=== PATIENT | male | born 1960 | race Caucasian/White ===

== ENCOUNTER 2020-03-08 10:27 | Emergency (ER) | payer BC, OTHER ==
--- NOTE | 2020-03-08 10:30 | ERPHSYRPT ---
- History of Present Illness Time Seen by Provider: 03/08/20 10:30 - Past Medical History Neurological History: No Pertinent History Cardiac History: No Pertinent History Respiratory History: No Pertinent History Endocrine Medical History: No Pertinent History Musculoskeletal History: Fractures Other Medical History: FX FINGER RIGHT HAND - ORIF >10 YEARS AGO. FX RIGHT HIP - ORIF 1989 - Referrals: EDWIN VILLAFUERTE MD [Primary Care Provider] -
--- NOTE | 2020-03-08 11:38 | XRAY ---
Indication: Pain and swelling following fall. Comparison: None 3 view left knee demonstrates minimal medial joint space narrowing/spurring, tiny patella spurring, nonspecific effusion, tiny medial condyle bone island, and small posterior lateral tibial plateau heterotopic ossification. No other bony, articular, or soft tissue abnormalities.
[2020-03-08 12:58] VITALS: BP 144/82; PULSE 80; O2SAT 96
== END 2020-03-08 12:58 | disposition home or self-care (01) ==
LOC: ED 10:27
DX: S83.92XA Sprain of unspecified site of left knee, initial encounter (principal); W01.0XXA Fall on same level from slipping, tripping and stumbling without subsequent striking against object, initial encounter; Y93.01 Activity, walking, marching and hiking; Y92.89 Other specified places as the place of occurrence of the external cause; Y99.0 Civilian activity done for income or pay
CPT/HCPCS: 73562; 99283

== ENCOUNTER 2022-02-04 16:42 | Emergency (ER) | payer OTHER ==
[2022-02-04] MEDS ORDERED: NORCO 5/325 MG PO ONE ×2 (17:03→19:53)
[2022-02-04] MEDS ORDERED: NORCO 5/325 MG ONE ×2 (18:14→19:56)
--- NOTE | 2022-02-04 19:32 | ERPHSYRPT ---
- History of Present Illness Time Seen by Provider: 02/04/22 16:49 Source: patient Exam Limitations: no limitations Patient Subjective Stated Complaint: Pt stated that his right ankle gave out from under him and twisted and now he has severe pain Triage Nursing Assessment: Pt brought to the ER by his son, lis pool, rates pain as 8/10, right ankle is swollen and tender and red in color, pulses normal, cap refill normal, denies any other injuries Physician History: 61 years old male presented in the ER with chief complaint of right ankle pain and swelling after his right ankle gave away while he stepped out of the garage and twisted it yesterday. Since then having gradual Jose Eduardo worsening sharp shooting pain and inability to have weightbearing. Pain is more on the lateral aspect of ankle with some swelling on the medial aspect as well. No injury anywhere else. Method of Injury: fell, twisted Occurred: yesterday Quality: sharpness Severity of Pain-Max: moderate Severity of Pain-Current: moderate Lower Extremities Pain: ankle: right Modifying Factors: Improves With: immobilization. Worsens With: movement Associated Symptoms: unable to bear weight Allergies/Adverse Reactions: No Known Drug Allergies Allergy (Verified 02/04/22 16:56) Hx Tetanus, Diphtheria Vaccination/Date Given: Yes Travel Risk - International Travel Have you traveled outside of the country in past 3 weeks: No - Coronavirus Screening Are you exhibiting any of the following symptoms?: No Close contact with a COVID-19 positive Pt in past 14-21 Days: No - Vaccine Status Have you recieved a Covid-19 vaccination: Yes Clinical Trial Leader: Unknown - Vaccination Dates Dates if Unknown: unknown - Review of Systems Constitutional: No Symptoms Eyes: No Symptoms Ears, Nose, & Throat: No Symptoms Respiratory: No Symptoms Cardiac: No Symptoms Musculoskeletal: Injury, Joint Pain, Joint Swelling Skin: No Symptoms Neurological: No Symptoms Psychological: No Symptoms Endocrine: No Symptoms Hematologic/Lymphatic: No Symptoms Immunological/Allergic: No Symptoms - Past Medical History Pertinent Past Medical History: Yes Neurological History: No Pertinent History Cardiac History: No Pertinent History Respiratory History: No Pertinent History Endocrine Medical History: No Pertinent History Musculoskeletal History: Fractures Other Medical History: FX FINGER RIGHT HAND - ORIF >10 YEARS AGO. FX RIGHT HIP - ORIF 1989 - Past Surgical History Past Surgical History: Yes Musculoskeletal: Orthopedic Surgery Other Surgical History: rotator cuff on right - Social History Smoking Status: Never smoker Exposure to second hand smoke: No Drug Use: none Patient Lives Alone: Yes - Nursing Vital Signs Nursing Vital Signs: Initial Vital Signs Temperature 97.7 F 02/04/22 16:49 Pulse Rate 81 02/04/22 16:49 Blood Pressure 132/75 02/04/22 16:49 O2 Sat by Pulse Oximetry 97 02/04/22 16:49 Pain Scale Pain Intensity 8 - Physical Exam General Appearance: no apparent distress, alert Eyes, Ears, Nose, Throat Exam: normal ENT inspection Neck Exam: normal inspection, non-tender, supple, full range of motion Cardiovascular/Respiratory Exam: normal breath sounds, regular rate/rhythm Back Exam: normal inspection, normal range of motion Ankle Exam: right ankle: bone tenderness (Lateral malleolus, anterior ankle and some on the medial malleolus as well), limited range of motion, pain, soft tissue tenderness, swelling, left ankle: non-tender, normal inspection, normal range of motion, no evidence of injury Foot Exam: right foot: pain, soft tissue tenderness Neuro/Tendon Exam: normal sensation Mental Status Exam: alert, oriented x 3 Skin Exam: normal color SpO2 Interpretation: normal SpO2: 96 O2 Delivery: Room Air Ordered Tests: Active Orders 24 hr Category Date Time Status ANKLE (3 VIEWS) Stat Exams 02/04/22 18:19 Taken LOWER LEG Stat Exams 02/04/22 18:19 Taken Medication Summary Discontinued Medications Generic Name Dose Route Start Last Admin Trade Name Ember PRN Reason Stop Dose Admin Hydrocodone Bitart/Acetaminophen 2 tab 02/04/22 17:03 02/04/22 18:14 Hydrocodone/Apap 5/325 Mg Tablet PO 02/04/22 17:04 2 tab STAT ONE Administration Hydrocodone Bitart/Acetaminophen Confirm 02/04/22 18:14 Hydrocodone/Apap 5/325 Mg Tablet Administered 02/04/22 18:15 Dose 2 tab .ROUTE .STK-MED ONE - Progress Progress: improved, pain not gone completely, re-examined Progress Note: 02/04/22 19:50 Has spiral fracture lower end of fibula without any dislocation. Given symptomatic treatment for pain and here, feeling better on reevaluation. We will continue with pain medication, nonweightbearing, crutches and outpatient podiatry follow-up. Counseled pt/family regarding: diagnosis, need for follow-up, rad results - Departure Departure Disposition: Home Clinical Impression: Ankle fracture, right Condition: Stable Critical Care Time: No Referrals: EDWIN VILLAFUERTE MD [Primary Care Provider] - Follow Up with PCP/3 days SARAH QUIJANO DPM [ACTIVE STAFF] - Follow up/PCP as directed (Tomorrow for reevaluation) Instructions: Ankle Fracture (DC) Additional Instructions: Keep it elevated, intermittent ice application. Nonweightbearing. Follow-up with diesel locomotive firer/fireman for reevaluation tomorrow. Return to ER for intractable pain, swelling, bluish discoloration of the toes or difficulty movements of toes etc. Prescriptions: Hydrocodone/Acetaminophen [Hydrocodone-Acetamin 5-325 mg] 1 tab PO Q6HPRN PRN 3 Days #12 tablet MDD 4 PRN Reason: Pain
[2022-02-04 20:04] VITALS: BP 148/79; PULSE 66; O2SAT 97
--- NOTE | 2022-02-05 08:39 | XRAY ---
Indication: Pain following fall. Comparison: None 2 view right lower leg demonstrates nondisplaced bi-malleolar fractures reported separately. Anterior leg demonstrates tiny soft tissue calcified granulomas. No other bony, articular, or soft tissue abnormalities.
--- NOTE | 2022-02-05 08:41 | XRAY ---
Indication: Pain following fall. Comparison: None 3 view left ankle demonstrates nondisplaced bimalleolar fractures with soft tissue swelling. Incidental small posterior/tiny plantar heel spurs. No other bony, articular, or soft tissue abnormalities. Comment: Preliminary interpretation made by [facility]. No critical discrepancy.
== END 2022-02-04 20:18 | disposition home or self-care (01) ==
LOC: ED 16:42
DX: S82.831A Other fracture of upper and lower end of right fibula, initial encounter for closed fracture (principal); X50.0XXA Overexertion from strenuous movement or load, initial encounter; Y92.015 Private garage of single-family (private) house as the place of occurrence of the external cause; M25.571 Pain in right ankle and joints of right foot; Z79.891 Long term (current) use of opiate analgesic
CPT/HCPCS: 29515; 73590; 73610; 99284; A9270-GY

== ENCOUNTER 2022-02-06 11:07 | Day surgery (SDC) | payer OTHER ==
[~2022-02-06 11:07] MED LIST: BUPIVACAINE 0.5% VIAL IJ ONE; Lactated Ringers 1,000 ML IV ONE; XYLOCAINE 1% HCL 20 ML MDV ONE
[2022-02-06] MEDS ORDERED: Versed 2 MG/2 ML Injection ONE (11:27)
[2022-02-06] MEDS ORDERED: SUBLIMAZE 100 MCG/2 ML ONE ×2 (11:28→13:20)
[2022-02-06] MEDS ORDERED: Naropin 0.5% 30 ML VIAL ONE (11:29)
[2022-02-06] MEDS ORDERED: Zofran 4 MG/2 ML VIAL ONE (11:29)
[2022-02-06] MEDS ORDERED: Decadron 4 MG INJ ONE (11:29)
[2022-02-06] MEDS ORDERED: DIPRIVAN 200 MG/20 ML IV ONE (11:29)
[2022-02-06] MEDS ORDERED: Xylocaine-Mpf 2% 5 Ml Vial ONE (11:29)
[2022-02-06] MEDS ORDERED: Marcaine 0.5%/Epinephrine 10 ML ONE (11:29)
[2022-02-06] MEDS ORDERED: Quelicin Fliptop 200 MG/10 ML ONE (11:33)
[2022-02-06] MEDS ORDERED: Zemuron 100 MG/10 ML ONE (11:33)
[2022-02-06] MEDS ORDERED: Reglan 10 MG/2 ML IV ONE (11:59)
[2022-02-06] MEDS ORDERED: Pepcid 20 MG VIAL IV ONE (11:59)
[2022-02-06] MEDS ORDERED: Lactated Ringers 1,000 ML IV SCH (12:00)
[2022-02-06] MEDS ORDERED: CEFAZOLIN 2 GM-D5W BAG** 2 GM/50 ML ML IV SCH (12:00)
[2022-02-06] MEDS ORDERED: Pre-Attached Lta Kit TP ONE (12:53)
[2022-02-06] MEDS ORDERED: DEXMEDETOMIDINE 80 MCG/20ML-NS IV ONE (12:53)
[2022-02-06] MEDS ORDERED: OFIRMEV 100 ML IV ONE (12:53)
[2022-02-06] MEDS ORDERED: Ephedrine Sulfate 50 MG/ML ONE (13:17)
[2022-02-06] MEDS ORDERED: ATROPINE SULFATE 1MG ONE (13:25)
--- NOTE | 2022-02-06 14:28 | XRAY ---
Indication: ORIF right ankle fracture. Intraoperative fluoroscopy provided for 2 minute 5 seconds. 3 digital spot images demonstrates fixation plate and screws fixating bimalleolar fracture in good apposition/alignment. Correlate with intraoperative findings/report.
[2022-02-06 16:13] VITALS: O2SAT 97
[2022-02-06 16:36] VITALS: BP 153/98; PULSE 70
--- NOTE | 2022-02-06 16:47 | XRAY ---
2 minutes 5 seconds of fluoroscopy was used in surgery for an ORIF of right ankle.
--- NOTE | 2022-02-07 12:00 | OP ---
SURGERY DATE/TIME: 02/06/2022 1250 PREOPERATIVE DIAGNOSIS: Bimalleolar fracture right ankle and syndesmotic disruption and right ankle pain. POSTOPERATIVE DIAGNOSIS: Bimalleolar fracture right ankle and syndesmotic disruption and right ankle pain. PROCEDURES: 1) Open reduction internal fixation of the right ankle bimalleolar fracture. 2) Syndesmotic reduction. SURGEON: Dino Krishna DPM. CENSUS TAKER: None. ANESTHESIA: General plus preoperative popliteal and saphenous block. HEMOSTASIS: Thigh tourniquet set to 300 mm of Mercury for 48 total tourniquet minutes. ESTIMATED BLOOD LOSS: Less than 5 cc. MATERIALS: Rakel anatomical six-hole plate with a combination of locking and nonlocking screws and a partially threaded 4.0 x 70 mm medial malleolar screw, 4.0 Monocryl, 2.0 Monocryl and 3-0 Nylon. INJECTABLES: See anesthesia report for details. INDICATION FOR SURGERY: Isidro is a very pleasant 61 year-old male who presented to my practice yesterday after fall. He presented to the emergency room on Saturday after having stepped out of the garage to his driveway and feeling a popping within his ankle assuming this was a slow rotational fracture. However the patient presented to the emergency room unable to bear weight to it and was diagnosed with a bimalleolar fracture of the right ankle. It appeared to be stable on presentation to the emergency department. However, the patient was placed in a posterior splint. The patient at that time continued to weight bear and further displaced the fracture to the bimalleolar medial and lateral ankle. At this time due to the nature of the fracture and the displacement of it and instability of it, the patient was informed that this is a surgical issue. The patient understands all risks, benefits and complications of surgical intervention at this time. Most complications were discussed with the patient that include but not limited to infection, hematoma, seroma, delayed skin healing, nonskin healing, possibility of nonbone healing as well as delayed bone healing. There is also a possibility of need for surgical intervention at a later date. The patient understands all of these and plenty of time was allowed for questions to be asked which were answered to the patient's apparent satisfaction. Plenty of time was allowed for these questions. It is with that we decided to proceed. DESCRIPTION OF PROCEDURE AND FINDINGS: At this time the patient was brought into the OR and placed on the OR table in the supine position. Prior to the procedure, the patient was provided a popliteal and saphenous block in order to alleviate the pain that he would be experiencing following the procedure and intraoperatively to allow for waterway traffic checker sedation. The patient had a well-padded thigh tourniquet applied to the right lower extremity and the right lower extremity was prepped and draped in the typical sterile fashion after general anesthesia was administered. At this time, attention was directed under fluoroscopic guidance to the lateral malleolus where incision was made being careful not to damage any neurovascular structures along the way to the posterior border of the fibula. At this time, the incisions were deepened and the fracture site was identified. At this time, copious amounts of sterile saline were utilized to flush the fracture site and a dental pick was utilized to remove any nonvitalized tissue. A lobster claw reduction clamp was utilized to close down the fracture this was checked under fluoroscopic guidance, this was deemed to be adequate inline and in rotation and at this time a six-hole anatomical one-third tubular plate was introduced to the lateral aspect. Distal screws were introduced first and then proximal screws were introduced in order to buttress the fracture. At this time, attention was then directed to the medial malleolus where an incision was made at the anterior aspect. The cortical line was identified and under flurosocopic guidance and with direct visualization, the medial malleolus was checked for the anterior edge of the medial malleolar cortices to line up, this was checked under fluoroscopic guidance and a K-wire was introduced from the tip of the medial malleolus and into the medullary cavity of the bone. This was checked on multiple angles and a 4.0 x 70 mm screw was introduced at this time and checked. Following this, syndesmosis was stressed under fluoroscopic guidance with an external rotation test which deemed there was some gapping at the tibiofibular articulation and a syndesmotic screw was deemed to be appropriate for reduction. At this time, a pointed reduction forceps was placed at the anterior third of the medial malleolus and the peroneal trochlea. At this time this was tightened down lightly and I believe it was a 56 mm syndesmotic screw was introduced from lateral to medial this was checked under fluoroscopic guidance and the position was deemed to be adequate. At this time copious amounts of sterile saline were utilized to flush the surgical site. The subcutaneous skin was coapted utilizing 4-0 Monocryl, 2-0 Monocryl and then the skin edges were then coapted utilizing 3-0 Nylon in a horizontal mattress-type fashion. The patient was then dressed with dressing consisting of Betadine, Adaptic, 4x4 and a well-padded posterior splint with Sugar-Tong was provided secured utilizing 4 inch and 6 inch SILVIA. At this time the patient was released from anesthesia and returned to the postoperative anesthesia care unit with vital signs stable and vascular status intact. The patient handled the anesthesia as well as the procedure without significant complication. Postoperative orders as indicated in the patient's discharge chart.
== END 2022-02-06 16:57 | disposition home or self-care (01) ==
LOC: SDC 11:07
PROVIDERS: ATTEND Podiatrist Foot & Ankle Surgery
DX: S82.841A Displaced bimalleolar fracture of right lower leg, initial encounter for closed fracture (principal); M25.571 Pain in right ankle and joints of right foot
CPT/HCPCS: 73620; 76000; 76937; J0330; J0461; J0690; J1100; J2250; J2405; J2704; J2795; J3010